=== PATIENT | female | born 1960 | race Caucasian/White ===

== ENCOUNTER → 2023-08-30 14:01 | Outpatient (REF) | payer OTHER, SELFPAY | LOC: HWRAD 14:01 | PROVIDERS: ATTENDING PHYSICIAN Internal Medicine | DX: Z00.00 Encounter for general adult medical examination without abnormal findings (principal); F32.4 Major depressive disorder, single episode, in partial remission; Z83.3 Family history of diabetes mellitus; Z78.0 Asymptomatic menopausal state | CPT/HCPCS: 77063; 77067; 77080 ==